=== PATIENT | female | born 1975 | race Asian ===

== ENCOUNTER → 2016-07-20 | Outpatient (CLI) | payer SELFPAY ==
[2016-07-20 12:20] LABS: Basophils # (auto) 0 uL; Basophils % (auto) 0.3 % (0.0-2.0); Eosinophils # (auto) 0.1 uL; Eosinophils % (auto) 1.1 % (0.0-7.0); Hematocrit 35.3 % (36.0-46.0); Hemoglobin 11.9 g/dL (12.2-16.2); Lymphocytes # (auto) 2.7 uL; Lymphocytes % (auto) 20.9 % (10.0-50.0); Mean Corpuscular Hemoglobin 31.8 pg (28.0-32.0); Mean Corpuscular Hgb Conc. 33.8 g/dL (32.0-36.0); Mean Corpuscular Volume 94.1 fL (80.0-100.0); Mean Platelet Volume 6.7 fL (7.4-10.4); Monocytes # (auto) 0.8 uL; Neutrophils # (auto) 9.2 uL; Neutrophils % (auto) 71.7 % (37.0-80.0); Platelet Count (auto) 384 10^3/uL (140-450); Red Cell Distribution Width 13.5 % (11.6-16.0); White Blood Cell 12.9 10^3/uL (4.4-10.8)
== END | disposition home or self-care (01) ==
LOC: LAB 10:57 → EDBD 10:57
PROVIDERS: ATTEND Specialist
DX: Z34.80 Encounter for supervision of other normal pregnancy, unspecified trimester (principal)
CPT/HCPCS: 36415; 85025; 85049; 86850; 86900; 86901; 87086

== ENCOUNTER → 2016-09-08 | Outpatient (CLI) | payer SELFPAY ==
[2016-09-08 12:49] LABS: Basophils # (auto) 0 uL; Basophils % (auto) 0.3 % (0.0-2.0); Eosinophils # (auto) 0.1 uL; Eosinophils % (auto) 1.1 % (0.0-7.0); Hematocrit 37.1 % (36.0-46.0); Hemoglobin 12.4 g/dL (12.2-16.2); Lymphocytes # (auto) 2.4 uL; Lymphocytes % (auto) 24.2 % (10.0-50.0); Mean Corpuscular Hemoglobin 31.9 pg (28.0-32.0); Mean Corpuscular Hgb Conc. 33.5 g/dL (32.0-36.0); Mean Corpuscular Volume 95.4 fL (80.0-100.0); Mean Platelet Volume 6.8 fL (7.4-10.4); Monocytes # (auto) 0.7 uL; Monocytes % (auto) 6.8 % (0.0-12.0); Neutrophils # (auto) 6.7 uL; Neutrophils % (auto) 67.6 % (37.0-80.0); Platelet Count (auto) 366 10^3/uL (140-450); Red Cell Distribution Width 14.4 % (11.6-16.0); White Blood Cell 9.9 10^3/uL (4.4-10.8)
== END | disposition home or self-care (01) ==
LOC: LAB 12:07
PROVIDERS: ATTEND Specialist
DX: Z34.00 Encounter for supervision of normal first pregnancy, unspecified trimester (principal); O99.810 Abnormal glucose complicating pregnancy
CPT/HCPCS: 36415; 85025; 86592; 87081

== ENCOUNTER 2016-09-24 09:05 | Observation (INO) | payer SELFPAY ==
[2016-09-25] MEDS ORDERED: PREN-96 PO (01:41)
== END 2016-09-24 10:30 | disposition home or self-care (01) | DRG 781 ==
LOC: LDRP 09:05
PROVIDERS: ADMIT Specialist; ATTEND Specialist
DX: O46.93 Antepartum hemorrhage, unspecified, third trimester (principal); O26.893 Other specified pregnancy related conditions, third trimester; R10.9 Unspecified abdominal pain; O62.9 Abnormality of forces of labor, unspecified; Z3A.39 39 weeks gestation of pregnancy
CPT/HCPCS: 59025; 76815; 81002; G0378